=== PATIENT | female | born 1970 | race Caucasian/White ===

== ENCOUNTER → 2016-11-01 | Outpatient (CLI) | payer OTHER ==
[~2016-11-01] MED LIST: ALPR-411 PO; ASCA500 PO; CALC1TAB10 PO; CHOL100010 PO; CHOL1TAB42 PO; CRS/10 PO; CRS10 PO; FRS/40 PO; GLC/500 PO; IRBE1TAB46 PO; LEVO88TA PO; LIRA18IN SC; LVMI SC; METF-384 PO; MISCCAP80 PO; PANT40TA PO; POTA10CA28 PO; POTA1TAB97 PO; TRAZ50TA35 PO; VTMB12 PO
--- NOTE | 2016-11-01 16:11 | MAMMOGRAPHY REPORT ---
BILATERAL DIGITAL SCREENING MAMMOGRAM TOMOSYNTHESIS WITH CAD: 11/01/2016 CLINICAL HISTORY: Routine screening. Patient has no complaints. TECHNIQUE: Breast tomosynthesis in addition to standard 2D mammography was performed. Current study was also evaluated with a Computer Aided Detection (CAD) system. COMPARISON: Comparison is made to exams dated: 10/19/2015 mammogram, 11/27/2013 mammogram, 11/12/2012 mammogram, 10/11/2011 mammogram, 08/03/2010 mammogram - [facility], and 01/17/2007. BREAST COMPOSITION: There are scattered areas of fibroglandular density in both breasts. FINDINGS: No suspicious masses, calcifications, or areas of architectural distortion are noted in e ither breast. There has been no significant interval change compared to prior exams. There is a sta ble benign intramammary lymph node in the right upper outer quadrant. IMPRESSION: ACR BI-RADS CATEGORY 2: BENIGN There is no mammographic evidence of malignancy. A 1 year screening mammogram is recommended. The p atient will receive written notification of the results. Approximately 10% of breast cancers are not detected with mammography. A negative mammographic repor t should not delay biopsy if a clinically suggestive mass is present. Almita Mcginnis M.D. /:11/01/2016 14:50:46 Career Consultant: Norma Albarran, [facility] letter sent: Normal 1/2 BI-RADS Code: ACR BI-RADS Category 2: Benign
== END | disposition home or self-care (01) ==
LOC: C.MAMM 08:32
PROVIDERS: ATTEND Obstetrics & Gynecology
DX: Z12.31 Encounter for screening mammogram for malignant neoplasm of breast (principal)

== ENCOUNTER → 2017-05-21 | Outpatient (CLI) | payer OTHER ==
[2017-05-21 09:55] LABS: CHOLESTEROL/HDL RATIO 2.8
== END | disposition home or self-care (01) ==
LOC: C.LAB 06:47
PROVIDERS: ATTEND Physician Assistant
DX: Z00.00 Encounter for general adult medical examination without abnormal findings (principal)

== ENCOUNTER → 2017-07-02 | Outpatient (CLI) | payer OTHER ==
[2017-07-02 09:37] LABS: HEMATOCRIT 41.5 % (37-47); MEAN CELL VOLUME 88.7 fL (80-100); MEAN CORPUSCULAR HEMOGLOBIN 29.7 pg (25-34); MEAN CORPUSCULAR HGB CONC 33.5 g/dl (32-36); MEAN PLATELET VOLUME 9.8 fL (7.4-10.4); PLATELET COUNT 282 K/uL (130-400); RED BLOOD COUNT 4.68 M/uL (4.2-5.4); WHITE BLOOD COUNT 7.19 K/uL (4.8-10.8)
[2017-07-02 09:57] LABS: ALB/GLOB RATIO 1.1 (0.9-2); ALKALINE PHOSPHATASE 90 U/L (45-117); ALT/SGPT 47 U/L (12-78); AST/SGOT 18 U/L (15-37); BLOOD UREA NITROGEN 11 mg/dl (7-18); BUN/CREATININE RATIO 14.7 (10-20); CARBON DIOXIDE 28 mmol/L (21-32); CHLORIDE 106 mmol/L (98-107); CREATININE 0.76 mg/dl (0.60-1.20); GLUCOSE 151 mg/dl (70-99); HDL CHOLESTEROL 44 mg/dl; POTASSIUM 3.9 mmol/L (3.5-5.1); SODIUM 140 mmol/L (136-145); TRIGLYCERIDES 123 mg/dl (0-150); VERY LOW DENSITY LIPOPROT CALC 25 mg/dl
[2017-07-02 10:03] LABS: CHOLESTEROL 122 mg/dl (0-200); CHOLESTEROL/HDL RATIO 2.8; ESTIMATED AVERAGE GLUCOSE 160 mg/dl; HA1C FLAG Normal (Normal); LDL CHOLESTEROL CALCULATED 53 mg/dl
== END | disposition home or self-care (01) ==
LOC: C.LAB 06:49
PROVIDERS: ATTEND Physician Assistant
DX: Z00.00 Encounter for general adult medical examination without abnormal findings (principal); E11.9 Type 2 diabetes mellitus without complications; E03.9 Hypothyroidism, unspecified; E78.5 Hyperlipidemia, unspecified; G47.00 Insomnia, unspecified; F41.9 Anxiety disorder, unspecified

== ENCOUNTER → 2017-07-24 | Outpatient (CLI) | payer OTHER ==
[~2017-07-24] MED LIST changes: -CHOL100010 PO; -CRS10 PO; -METF-384 PO; -POTA10CA28 PO; -TRAZ50TA35 PO
--- NOTE | 2017-07-24 13:14 | DIAGNOSTIC IMAGING REPORT ---
NUCLEAR GASTRIC EMPTYING STUDY CLINICAL HISTORY: Early satiety. Nausea. Diabetes. COMPARISON STUDY: Abdominal CT dated 07/22/2012. TECHNIQUE: Following the oral administration of 1.1 mCi of technetium 99m sulfur colloid in egg sandwich and 8 ounces of water, static abdominal images are obtained anteriorly and posteriorly at 0 minutes, 1 hour, 2 hour, and 4 hour time intervals. Gastric emptying was calculated utilizing the geometric mean method. FINDINGS: There is approximately 71% activity remaining at the 1 hour time interval, 58% remaining at the 2 hour time interval (normal is less than 60%), and 2% activity remaining at the 4 hour time interval (normal is less than 10%). IMPRESSION: Findings are consistent with normal gastric emptying for solids. Electronically signed by: Wali Ariza M.D. 07/24/2017 1:13 PM Dictated Date/Time: 07/24/2017 1:12 PM
== END ==
LOC: C.NUCL 07:34
PROVIDERS: ATTEND Registered Nurse
DX: K21.9 Gastro-esophageal reflux disease without esophagitis (principal); E11.9 Type 2 diabetes mellitus without complications; R68.81 Early satiety; R11.0 Nausea

== ENCOUNTER → 2017-07-26 | Outpatient (CLI) | payer OTHER ==
[2017-07-26 18:31] LABS: BLOOD UREA NITROGEN 11 mg/dl (7-18); BUN/CREATININE RATIO 14.2 (10-20); CALCIUM 10.2 mg/dl (8.5-10.1); CARBON DIOXIDE 28 mmol/L (21-32); CHLORIDE 105 mmol/L (98-107); CREATININE 0.77 mg/dl (0.60-1.20); GLUCOSE 90 mg/dl (70-99); POTASSIUM 3.6 mmol/L (3.5-5.1); SODIUM 141 mmol/L (136-145)
== END | disposition home or self-care (01) ==
LOC: C.LAB 16:18
PROVIDERS: ATTEND Internal Medicine
DX: I10 Essential (primary) hypertension (principal)

== ENCOUNTER → 2017-07-30 | Outpatient (CLI) | payer OTHER ==
[~2017-07-30] VITALS: Ht 157.5 cm; Wt 82.2 kg
[2017-07-30 15:41] VITALS: BP 129/89; PULSE 106; Ht 157.5 cm; Wt 82.2 kg
== END | disposition home or self-care (01) ==
LOC: C.NEUR 14:58
PROVIDERS: ATTEND Internal Medicine Pulmonary Disease
DX: G47.33 Obstructive sleep apnea (adult) (pediatric) (principal); G47.00 Insomnia, unspecified; R53.83 Other fatigue

== ENCOUNTER → 2017-08-02 | Day surgery (SDC) | payer OTHER ==
[2017-07-22 15:30] VITALS: BMI 33.0
[~2017-08-02] VITALS: Ht 157.5 cm; Wt 81.8 kg
[~2017-08-02] MED LIST changes: +FENTANYL CITRATE INJ 50 MCG/1 ML 2 ML VIAL ONE; +LIDOCAINE HCL 2% 2 ML VIAL (20MG/ML) ONE; +PROPOFOL IV EMULSION 10 MG/ML 20 ML VIAL IV ONE
[2017-08-02 09:54] VITALS: Ht 157.5 cm; Wt 81.8 kg
--- NOTE | 2017-08-02 09:54 | Endo History and Physical ---
History & Physical Date of Service: Aug 02, 2017. Chief Complaint: GERD, Early Satiety Referring Physician: Dr. Patel History of Present Illness 47 yo CF who presents for EGD secondary to GERD and Early satiety. Past Medical History Diabetes, Reflux, High Cholesterol, Hypertension, Thyroid Disease Past Surgical History Hx Cardiac Surgery: No Hx Internal Defibrillator: No Hx Pacemaker: No Hx Abdominal Surgery: Yes (SIGMOID COLECTOMY, MICHELE) Hx of Implantable Prosthesis: No Hx Post-Op Nausea and Vomiting: No Hx Cancer Surgery: No Hx Thoracic Surgery: No Hx Orthopedic: No Hx Urinary Tract Surgery: No Family History None Social History Smoking Status: Never Smoker Hx Substance Use: No Hx Alcohol Use: No Allergies Coded Allergies: Labetalol (Verified Allergy, Intermediate, HIVES, 07/22/17) Losartan (Verified Allergy, Intermediate, HIVES, 07/22/17) Penicillins (Verified Allergy, Intermediate, HIVES, 07/22/17) Pioglitazone (Verified Allergy, Intermediate, SWELLING HANDS AND FEET, 07/22/17) Exenatide (Verified Allergy, Unknown, HIVES, 07/22/17) Fentanyl (Verified Adverse Reaction, Unknown, NAUSEA AND VOMITING, 07/22/17 ) Current Medications Reported Home Medications Medications Dose Route/Sig Max Daily Dose Days Date Category Xanax (Alprazolam) 0.5 Mg Tab 0.5 Mg PO HS PRN 07/22/17 Reported Probiotic (Probiotic Product) 1 Cap Cap 1 Cap PO QAM 07/22/17 Reported Calcium 1000 + D (Calcium Carbonate-Cholecalcife) 1 Tab Tab 1 Tab PO LUNCH 07/22/17 Reported Vitamin C (Ascorbic Acid) 500 Mg Tab 1 Tab PO LUNCH 07/22/17 Reported Vitamin B-12 (Cyanocobalamin) 500 Mcg Tab 1 Tab PO LUNCH 07/22/17 Reported Vitamin D (Cholecalciferol) 5,000 Unit Tab 1 Tab PO QAM 07/22/17 Reported Crestor (Rosuvastatin Calcium) 10 Mg Tab 10 Mg PO QPM 07/22/17 Reported Glucophage (Metformin Hcl) 500 Mg Tab 2 Tabs PO BID 07/22/17 Reported K-Tab (Potassium Chloride) 20 Meq Tab 1 Tab PO QAM 07/22/17 Reported Synthroid (Levothyroxine Sodium) 88 Mcg Tab 88 Mcg PO QAM 11/27/15 Reported Irbesartan 75 Mg Tab 75 Mg PO QPM 11/27/15 Reported Protonix (Pantoprazole) 40 Mg Tab 40 Mg PO QAM 11/27/15 Reported Levemir (Insulin Detemir) 100 Units/Ml Inj 24 Units SC BID 11/27/15 Reported Victoza (Liraglutide) 18 Mg/3 Ml Inj 1.2 Mg SC QPM 04/29/14 Reported Lasix (Furosemide) 40 Mg Tab 40 Mg PO QAM 05/20/11 Reported Vital Signs Weight (Kilograms): 81.82 Height (Feet): 5 Height (Inches): 2 Physical Exam General Appearance: WD/WN, no apparent distress Respiratory/Chest: Auscultation: breath sounds normal Cardiovascular: Heart Auscultation: RRR Abdomen: Bowel Sounds: normal Inspection & Palpation: soft, non-distended, no tenderness, guarding & rebound Assessment and Plan Assessment: 47 yo CF who presents for EGD secondary to GERD and Early satiety. Plan: Proceed with EGD.
[2017-08-02 10:01] VITALS: TEMP 37.1
--- NOTE | 2017-08-02 10:56 | Discharge Instructions ---
Endoscopy Patient Instructions Date / Procedure(s) Performed Aug 02, 2017. EGD Allergy Information Coded Allergies: Labetalol (Verified Allergy, Intermediate, HIVES, 07/22/17) Losartan (Verified Allergy, Intermediate, HIVES, 07/22/17) Penicillins (Verified Allergy, Intermediate, HIVES, 07/22/17) Pioglitazone (Verified Allergy, Intermediate, SWELLING HANDS AND FEET, 07/22/17) Exenatide (Verified Allergy, Unknown, HIVES, 07/22/17) Fentanyl (Verified Adverse Reaction, Unknown, NAUSEA AND VOMITING, 07/22/17 ) Discharge Date / Findings Aug 02, 2017. Gastric antrum biopsies Medication Instructions Stopped Medication(s): METFORMIN OK to resume all medications today as prescribed Reported Home Medications Medications Dose Route/Sig Max Daily Dose Days Date Category Xanax (Alprazolam) 0.5 Mg Tab 0.5 Mg PO HS PRN 07/22/17 Reported Probiotic (Probiotic Product) 1 Cap Cap 1 Cap PO QAM 07/22/17 Reported Calcium 1000 + D (Calcium Carbonate-Cholecalcife) 1 Tab Tab 1 Tab PO LUNCH 07/22/17 Reported Vitamin C (Ascorbic Acid) 500 Mg Tab 1 Tab PO LUNCH 07/22/17 Reported Vitamin B-12 (Cyanocobalamin) 500 Mcg Tab 1 Tab PO LUNCH 07/22/17 Reported Vitamin D (Cholecalciferol) 5,000 Unit Tab 1 Tab PO QAM 07/22/17 Reported Crestor (Rosuvastatin Calcium) 10 Mg Tab 10 Mg PO QPM 07/22/17 Reported Glucophage (Metformin Hcl) 500 Mg Tab 2 Tabs PO BID 07/22/17 Reported K-Tab (Potassium Chloride) 20 Meq Tab 1 Tab PO QAM 07/22/17 Reported Synthroid (Levothyroxine Sodium) 88 Mcg Tab 88 Mcg PO QAM 11/27/15 Reported Irbesartan 75 Mg Tab 75 Mg PO QPM 11/27/15 Reported Protonix (Pantoprazole) 40 Mg Tab 40 Mg PO QAM 11/27/15 Reported Levemir (Insulin Detemir) 100 Units/Ml Inj 24 Units SC BID 11/27/15 Reported Victoza (Liraglutide) 18 Mg/3 Ml Inj 1.2 Mg SC QPM 04/29/14 Reported Lasix (Furosemide) 40 Mg Tab 40 Mg PO QAM 05/20/11 Reported Provider Instructions Activity Restrictions - No exercising or heavy lifting for 24 hours. - Do not drink alcohol the day of the procedure. - Do not drive a car or operate machinery until the day after the procedure. - Do not make any important decisions or sign important papers in 24 hours after the procedure. Following Day: - Return to full activity which may include returning to work/school. Diet Start your diet with liquids and light foods (jello, soup, juice, toast). Then eat your usual diet if not nauseated. Treatment For Common After Affects For mild abdominal pain, bloating, or excessive gas: - Rest - Eat lightly - Lie on right side Follow-Up Information Follow-up with DR. RAMSEY ZAPATA as scheduled Anesthesia Information What You Should Know You have had a procedure that required some medicine to reduce anxiety and discomfort. This treatment is called moderate sedation. After receiving the treatment, you may be sleepy, but you will be able to breathe on your own. The effects of the treatment may last for several hours. Follow these instructions along with Activity/Diet recommendations noted above: * Do NOT do anything where dizziness or clumsiness would be dangerous. * Rest quietly at home today, then you can be up and about tomorrow. * Have a responsible person stay with you the rest of today. * You may have had an I.V. today. If so, you may take the dressing off later today. Recommendations Call your doctor if: * Trouble breathing * Continuous vomiting for more than 24 hours * Temperature above 101 degrees * Severe abdominal pain or bloating * Pain not relieved by pain medicine ordered * There is increased drainage or redness from any incision * A large amount of rectal bleeding greater than 2-3 tablespoons. (If you had a polyp/s removed or have hemorrhoids, a small amount of blood - from the rectum is to be expected.) * You have any unanswered questions or concerns. IN THE EVENT OF A SERIOUS EMERGENCY, GO TO THE NEAREST EMERGENCY ROOM Your discharge instructions were prepared by provider Hugo Coronel. Patient Instructions Signature Page Susanne Garrett Patient (or Guardian) Signature/Date: I have read and understand the instructions given to me by my caregivers. Caregiver/RN/Doctor Signature/Date: The above-named patient and/or guardian has received patient instructions on this date. + Original Patient Signature Page (only) stays with chart. Please make copy for patient.
--- NOTE | 2017-08-02 11:02 | GI REPORT ---
Procedure Date: 08/02/2017 10:30 AM Procedure: Upper GI endoscopy Indications: Gastro-esophageal reflux disease, Early satiety Medicines: Monitored Anesthesia Care Complications: No immediate complications. Estimated Blood Loss: Estimated blood loss: none. Procedure: Pre-Anesthesia Assessment: - Prior to the procedure, a History and Physical was performed, and patient medications and allergies were reviewed. The patient's tolerance of previous anesthesia was also reviewed. The risks and benefits of the procedure and the sedation options and risks were discussed with the patient. All questions were answered, and informed consent was obtained. Prior Anticoagulants: The patient has taken no previous anticoagulant or antiplatelet agents. ASA Grade Assessment: III - A patient with severe systemic disease. After reviewing the risks and benefits, the patient was deemed in satisfactory condition to undergo the procedure. After obtaining informed consent, the endoscope was passed under direct vision. Throughout the procedure, the patient's blood pressure, pulse, and oxygen saturations were monitored continuously. The scope was introduced through the mouth, and advanced to the second part of duodenum. The upper GI endoscopy was accomplished without difficulty. The patient tolerated the procedure well. Findings: The esophagus was normal. The entire examined stomach was normal. Biopsies were taken with a cold forceps for Helicobacter pylori testing. The examined duodenum was normal. Impression: - Normal esophagus. - Normal stomach. Biopsied. - Normal examined duodenum. Recommendation: - Resume previous diet. - Continue present medications. - Await pathology results. - Return to primary care physician as previously scheduled. Hugo Coronel DO 08/02/2017 11:02:04 AM This report has been signed electronically. Note Initiated On: 08/02/2017 10:30 AM I attest to the content of the Intraoperative Record and orders documented therein, exceptions below
[2017-08-02 11:21] VITALS: BP 123/85; PULSE 77; O2SAT 95
--- NOTE | 2017-08-02 12:04 | Anesthesiology Progress Note ---
Anesthesia Post Op Note Date & Time Aug 02, 2017 at 12:04 Vital Signs Pain Intensity: 0 Vital Signs Past 12 Hours Date Time Temp Pulse Resp B/P (MAP) Pulse Ox O2 Delivery O2 Flow Rate FiO2 08/02/17 11:21 77 20 123/85 (98) 95 Room Air 08/02/17 11:06 81 20 135/89 (104) 96 Room Air 08/02/17 10:51 78 18 117/77 (90) 99 Room Air 08/02/17 10:01 37.1 85 16 147/80 (102) 95 Room Air Notes Mental Status: alert / awake / arousable, participated in evaluation Pt Amnestic to Procedure: Yes Nausea / Vomiting: adequately controlled Pain: adequately controlled Airway Patency, RR, SpO2: stable & adequate BP & HR: stable & adequate Hydration State: stable & adequate Anesthetic Complications: no major complications apparent
== END | disposition home or self-care (01) ==
LOC: C.GI 09:19
PROVIDERS: ATTEND Internal Medicine
DX: K21.9 Gastro-esophageal reflux disease without esophagitis (principal); R68.81 Early satiety; I10 Essential (primary) hypertension; E78.00 Pure hypercholesterolemia, unspecified; E11.9 Type 2 diabetes mellitus without complications; E07.9 Disorder of thyroid, unspecified; Z79.84 Long term (current) use of oral hypoglycemic drugs; Z79.899 Other long term (current) drug therapy

== ENCOUNTER → 2017-08-26 | Outpatient (CLI) | payer OTHER ==
[~2017-08-26] MED LIST changes: -FENTANYL CITRATE INJ 50 MCG/1 ML 2 ML VIAL ONE; -LIDOCAINE HCL 2% 2 ML VIAL (20MG/ML) ONE; -PROPOFOL IV EMULSION 10 MG/ML 20 ML VIAL IV ONE
== END | disposition home or self-care (01) ==
LOC: C.PAPS 13:45
PROVIDERS: ATTEND Obstetrics & Gynecology
DX: Z12.4 Encounter for screening for malignant neoplasm of cervix (principal)

== ENCOUNTER → 2017-09-02 | Outpatient (CLI) | payer OTHER | END | disposition home or self-care (01) | LOC: C.LAB 17:39 | PROVIDERS: ATTEND Internal Medicine | DX: Z86.39 Personal history of other endocrine, nutritional and metabolic disease (principal) ==

== ENCOUNTER → 2017-10-08 | Outpatient (CLI) | payer OTHER ==
[~2017-10-08] VITALS: Ht 157.5 cm; Wt 84.3 kg
[2017-10-08 16:24] VITALS: BP 122/79; PULSE 103; Ht 157.5 cm; Wt 84.3 kg
== END | disposition home or self-care (01) ==
LOC: C.NEUR 15:15
PROVIDERS: ATTEND Physician Assistant Medical
DX: G47.33 Obstructive sleep apnea (adult) (pediatric) (principal); E66.9 Obesity, unspecified; G47.61 Periodic limb movement disorder

== ENCOUNTER → 2017-11-05 | Outpatient (CLI) | payer OTHER ==
--- NOTE | 2017-11-06 15:09 | MAMMOGRAPHY REPORT ---
BILATERAL DIGITAL SCREENING MAMMOGRAM TOMOSYNTHESIS WITH CAD: 11/05/2017 CLINICAL HISTORY: Routine screening. Patient has no complaints. TECHNIQUE: Breast tomosynthesis in addition to standard 2D mammography was performed. Current study was also evaluated with a Computer Aided Detection (CAD) system. COMPARISON: Comparison is made to exams dated: 11/01/2016 mammogram, 10/19/2015 mammogram, 11/12/2012 mammogram, 11/27/2013 mammogram, 10/11/2011 mammogram, and 02/02/2011 mammogram - [facility]. BREAST COMPOSITION: There are scattered areas of fibroglandular density in both breasts. FINDINGS: The parenchymal pattern is unchanged. No developing mass, architectural distortion or clus ter of suspicious microcalcifications is seen in either breast. IMPRESSION: ACR BI-RADS CATEGORY 2: BENIGN There is no mammographic evidence of malignancy. A 1 year screening mammogram is recommended. The pa tient will receive written notification of the results. Approximately 10% of breast cancers are not detected with mammography. A negative mammographic report should not delay biopsy if a clinically suggestive mass is present. Mago Melvin M.D. ay/:11/05/2017 14:52:36 Campus Recruiting Coordinator: Norma MORRIS([place])(M), [facility] letter sent: Normal 1/2 BI-RADS Code: ACR BI-RADS Category 2: Benign
== END | disposition home or self-care (01) ==
LOC: C.MAMM 14:10
PROVIDERS: ATTEND Obstetrics & Gynecology
DX: Z12.31 Encounter for screening mammogram for malignant neoplasm of breast (principal)

== ENCOUNTER → 2017-11-08 | Outpatient (CLI) | payer OTHER ==
[2017-11-08 14:04] LABS: HEMOGLOBIN A1C 6.6 % (4.5-5.6)
== END | disposition home or self-care (01) ==
LOC: C.LAB 12:25
PROVIDERS: ATTEND Internal Medicine Endocrinology, Diabetes & Metabolism
DX: E55.9 Vitamin D deficiency, unspecified (principal); E11.65 Type 2 diabetes mellitus with hyperglycemia

== ENCOUNTER → 2017-11-12 | Day surgery (SDC) | payer OTHER ==
[~2017-11-12] VITALS: Ht 157.5 cm; Wt 82.0 kg
[2017-11-12 07:37] VITALS: BP 109/78; PULSE 89; TEMP 36.7; O2SAT 93; Ht 157.5 cm; Wt 82.0 kg
[2017-11-12 11:14] VITALS: BP 111/77; PULSE 100; TEMP 36.8; O2SAT 95
--- NOTE | 2017-11-14 11:09 | Procedure Note ---
Breath Hydrogen Test Interpretation Assessment: No evidence of Small intestinal bacterial overgrowth on Lactulose breath testing. Plan: Followup with ordering provider for further evaluation and recommendations.
== END | disposition home or self-care (01) ==
LOC: C.MTU 07:26
PROVIDERS: ATTEND Internal Medicine
DX: R14.0 Abdominal distension (gaseous) (principal)

== ENCOUNTER 2017-12-05 18:08 | Emergency (ER) | payer OTHER ==
[~2017-12-05] VITALS: Ht 157.5 cm; Wt 83.3 kg
[2017-12-05 18:44] VITALS: TEMP 37; Ht 157.5 cm; Wt 83.3 kg
[2017-12-05] MEDS ORDERED: ONDANSETRON INJ 2 MG/ML 2 ML VIAL IV STA (21:17)
[2017-12-05] MEDS ORDERED: CIPROFLOXACIN 500 MG TAB PO STA (21:17)
[2017-12-05] MEDS ORDERED: METRONIDAZOLE 250 MG TAB PO STA (21:17)
[2017-12-05] MEDS ORDERED: SODIUM CHLORIDE 0.9% 1000ML 1,000 ML IV STA (21:17)
[2017-12-05] MEDS ORDERED: KETOROLAC TROMETHAMINE 30 MG/ML VIAL IV STA (21:17)
[2017-12-05 21:27] LABS: BASO % 0.6 %; BASO ABS # 0.05 K/uL (0-0.2); EOS % 1.9 %; EOS ABS # 0.17 K/uL (0-0.5); HEMATOCRIT 44.1 % (37-47); HEMOGLOBIN 15.2 g/dL (12.0-16.0); IG# 0.01 K/uL (0.00-0.02); LYMPH % 37.5 %; LYMPH ABS # 3.28 K/uL (1.2-3.4); MEAN CELL VOLUME 86.6 fL (80-100); MEAN CORPUSCULAR HEMOGLOBIN 29.9 pg (25-34); MEAN CORPUSCULAR HGB CONC 34.5 g/dl (32-36); MONO % 7.4 %; MONO ABS # 0.65 K/uL (0.11-0.59); NEUT % 52.5 %; NEUT ABS # 4.59 K/uL (1.4-6.5); PLATELET COUNT 316 K/uL (130-400); RED CELL DISTRIBUTION WIDTH CV 13.3 % (11.5-14.5); RED CELL DISTRIBUTION WIDTH SD 42.4 fL (36.4-46.3); WHITE BLOOD COUNT 8.75 K/uL (4.8-10.8)
[2017-12-05 21:44] LABS: CALCIUM 9.6 mg/dl (8.5-10.1); CREATININE 0.83 mg/dl (0.60-1.20); POTASSIUM 3.3 mmol/L (3.5-5.1)
[2017-12-05 21:47] LABS: TOTAL PROTEIN 7.9 gm/dl (6.4-8.2)
--- NOTE | 2017-12-05 22:06 | DIAGNOSTIC IMAGING REPORT ---
ADDENDUM Impression #5. A 6 mm nodule within the right middle lobe. Please refer to the chart below for recommended follow-up. These findings were discussed with Dr. White at 10:58 PM on 12/05/2017. Please refer to below summary of Fleischner criteria recommendations for follow-up of incidental CT nodules (Kelsea Ruvalcaba, Guidelines for management of small pulmonary nodules detected on CT scans: A statement from the Fleischner Society, Radiology 237: [phone].) SOLID NODULES Solitary nodule size: <6 mm * Low risk patients: no follow-up needed * high risk patients: optional CT at 12 months Solitary nodule size: 6-8 mm * Low risk patients: follow-up at 6-12 months, then consider further follow-up at 18-24 months * high risk patients: initial follow-up CT at 6-12 months and then at 18-24 months if no change Solitary nodule size: >8 mm * either low or high risk patients - consider follow-up CT at 3 months, and/or CT-PET, and/or biopsy Multiple nodules size: <6 mm * Low risk patients: no routine follow-up * high risk patients: optional CT at 12 months Multiple nodules size: 6-8 mm * Low risk patients: follow-up at 3-6 months, then consider further follow-up at 18-24 months * high risk patients: follow-up at 3-6 months, then at 18-24 months if no change Multiple nodules size: >8 mm * Low risk patients: follow-up at 3-6 months, then consider further follow-up at 18-24 months * high risk patients: follow-up at 3-6 months, then at 18-24 months if no change Note: newly detected indeterminate nodule in persons 35 years of age or older. * Low risk patients: minimal or absent history of smoking and/or other known risk factors * high risk patients: history of smoking or of other known risk factors (e.g. first degree relative with lung cancer, or exposure to asbestos, radon, uranium) * if a nodule up to 8 mm is partly solid or is ground glass further follow-up is required after 24 months to exclude possible slow growing adenocarcinoma (NESTOR) SUBSOLID NODULES Solitary pure ground-glass nodule * nodule size <6 mm - no CT follow-up required * nodule size >=6 mm - follow-up CT at 6-12 months, then every 2 years until 5 years Solitary part-solid nodule * nodule size <6 mm - no CT follow-up required * nodule size >=6 mm - follow-up CT at 3-6 months. If unchanged, and solid component remains <6 mm, then annual follow-up for 5 years Multiple subsolid nodules * nodule size <6 mm - follow-up CT at 3-6 months, consider further follow-up at 2 and 4 years if stable * nodule size >=6 mm - follow-up CT at 3-6 months, subsequent management based on the most suspicious nodule(s) Electronically signed by: Rafat Chavez M.D. 12/05/2017 10:58 PM Dictated Date/Time: 12/05/2017 10:56 PM ORIGINAL REPORT ABDOMEN AND PELVIS CT WITHOUT CONTRAST CT DOSE: 620.79 mGy.cm HISTORY: Left lower quadrant pain. TECHNIQUE: Multiaxial CT images of the abdomen and pelvis were performed without contrast. A dose lowering technique was utilized adhering to the principles of ALARA. COMPARISON STUDY: Abdomen and pelvis CT 02/05/2012. FINDINGS: There is a 6 mm nodule within the right middle lobe on image 8. Bibasilar linear densities consistent with subsegmental atelectasis. No pneumoperitoneum. No pneumatosis. No fractures within the visualized osseous structures. Tiny fat-containing umbilical hernia. The liver, spleen, adrenal glands, pancreas, and kidneys are unremarkable. No hydronephrosis. Cholecystectomy. No retroperitoneal lymphadenopathy. The bladder is not well-distended. The uterus and ovaries are unremarkable. There is no complaint diverticula at the distal sigmoid colon with surrounding pericolonic inflammatory change. This is consistent with acute diverticulitis. No perforation or abscess at this time. No evidence for bowel obstruction. Normal appendix. IMPRESSION: 1. Acute sigmoid diverticulitis. No perforation or abscess. 2. No evidence for bowel obstruction. 3. Normal appendix. 4. Cholecystectomy. Electronically signed by: Rafat Chavez M.D. 12/05/2017 10:04 PM Dictated Date/Time: 12/05/2017 10:00 PM
[2017-12-05] MEDS ORDERED: ESZO1TAB18 PO (22:32)
[2017-12-05] MEDS ORDERED: METF500T5 PO (22:32)
[2017-12-05] MEDS ORDERED: ASPI81TA28 PO (22:32)
[2017-12-05] MEDS ORDERED: METR-163 PO (23:16)
[2017-12-05] MEDS ORDERED: CIPR-255 PO (23:16)
[2017-12-05] MEDS ORDERED: OXYC-57 PO (23:16)
--- NOTE | 2017-12-05 23:18 | EMERGENCY ROOM VISIT NOTE ---
History Report prepared by Cabrera: Guerrero Zavala Under the Supervision of: Dr. Lauri White D.O. First contact with patient: 21:12 Chief Complaint: ABDOMINAL PAIN Stated Complaint: ABDOMINAL PAIN,FEVER Nursing Triage Summary: Patient ambulatory to triage, states "I have had abdominal pain since yesterday afternoon. I saw my PCP today and he told me to come in. I have a history of diverticulitis." Patient denies any nausea/vomiting/diarrhea. No blood in stool. Decreased appetite today. History of Present Illness The patient is a 47 year old female who presents to the Emergency Room with complaints of constant abdominal pain beginning yesterday. The patient states that she has a history of diverticulitis, and believes that her current symptoms are a flare up. She also complains of a fever of 100.2, nausea, and vomiting. She denies having diarrhea, but notes that she has had a few loose stools. Source of History: patient Onset: yesterday Position: abdomen Timing: constant Associated Symptoms: + fevers (100.2), + nausea, + vomiting, No diarrhea Note: She also complains of loose stools. Review of Systems See HPI for pertinent positives & negatives. A total of 10 systems reviewed and were otherwise negative. Past Medical & Surgical Medical Problems: (1) Benign hypertension (2) Biliary colic (3) CHEST PAIN ON BREATHING (4) CHEST PAIN, UNSPECIFIED (5) Diabetes mellitus (6) Diverticulitis (7) sigmoid colectomy Family History Diabetes mellitus (Paternal side) Heart disease Hypertension Social History Smoking Status: Never Smoker Alcohol Use: occasionally Drug Use: none Marital Status: single Housing Status: lives alone Occupation Status: employed Current/Historical Medications Scheduled Ascorbic Acid (Vitamin C), 1 TAB PO LUNCH Aspirin (Aspirin Ec), 81 MG PO DAILY Cholecalciferol (Vitamin D), 1 TAB PO QAM Ciprofloxacin Hcl (Cipro), 500 MG PO BID Cyanocobalamin (Vitamin B-12), 1 TAB PO LUNCH Eszopiclone (Lunesta), 2 MG PO HS Furosemide (Lasix), 40 MG PO QAM Insulin Detemir (Levemir), 40 UNITS SC BID Irbesartan (Irbesartan), 75 MG PO QPM Levothyroxine Sodium (Synthroid), 88 MCG PO QAM Liraglutide (Victoza), 1.2 MG SC QPM Metformin Hcl Er (Glucophage Er), 1,000 MG PO BID Metronidazole (Flagyl), 500 MG PO TID Pantoprazole (Protonix), 40 MG PO QAM Potassium Chloride (K-Tab), 1 TAB PO QAM Probiotic Product (Probiotic), 1 CAP PO QAM Rosuvastatin Calcium (Crestor), 10 MG PO QPM Scheduled PRN Oxycodone/Acetaminophen 5MG/325MG (Percocet 5MG/325MG), 1 TAB PO Q6H PRN for Pain Allergies Coded Allergies: Labetalol (Verified Allergy, Intermediate, HIVES, 12/05/17) Losartan (Verified Allergy, Intermediate, HIVES, 12/05/17) Penicillins (Verified Allergy, Intermediate, HIVES, 12/05/17) Pioglitazone (Verified Allergy, Intermediate, SWELLING HANDS AND FEET, ) Exenatide (Verified Allergy, Unknown, HIVES, 12/05/17) Fentanyl (Verified Adverse Reaction, Unknown, NAUSEA AND VOMITING, 12/05/17 ) Physical Exam Vital Signs Date Time Temp Pulse Resp B/P (MAP) Pulse Ox O2 Delivery O2 Flow Rate FiO2 12/05/17 22:58 85 12/05/17 22:36 89 20 94 12/05/17 22:31 121/89 12/05/17 21:31 134/106 12/05/17 21:28 96 15 93 12/05/17 21:13 87 16 93 12/05/17 21:01 133/90 12/05/17 20:58 88 14 94 12/05/17 20:53 90 15 95 Room Air 12/05/17 20:52 142/88 12/05/17 18:44 37.0 102 20 123/79 94 Room Air Physical Exam CONSTITUTIONAL/VITAL SIGNS: Reviewed / noted above. GENERAL: Non-toxic in appearance. INTEGUMENTARY: Warm, dry, and [place]. HEAD: Normocephalic. EYES: without scleral icterus or trauma. ENT/OROPHARYNX: clear and moist. LYMPHADENOPATHY/NECK: Is supple without lymphadenopathy or meningismus. RESPIRATORY: Lungs clear and equal. CARDIOVASCULAR: Regular rate and rhythm. GI/ABDOMEN: Soft. No organomegaly or pulsatile mass. No rebound or guarding. Normal bowel sounds. LLQ tenderness. EXTREMITIES: Warm and well perfused. BACK: No CVA tenderness. NEUROLOGICAL: Intact without focal deficits. PSYCHIATRIC: normal affect. MUSCULOSKELETAL: Normally developed with good muscle tone. Medical Decision & Procedures ER Provider Diagnostic Interpretation: Radiology results as stated below per my review and radiologist interpretation: ABDOMEN AND PELVIS CT WITHOUT CONTRAST FINDINGS: There is a 6 mm nodule within the right middle lobe on image 8. Bibasilar linear densities consistent with subsegmental atelectasis. No pneumoperitoneum. No pneumatosis. No fractures within the visualized osseous structures. Tiny fat-containing umbilical hernia. The liver, spleen, adrenal glands, pancreas, and kidneys are unremarkable. No hydronephrosis. Cholecystectomy. No retroperitoneal lymphadenopathy. The bladder is not well-distended. The uterus and ovaries are unremarkable. There is no complaint diverticula at the distal sigmoid colon with surrounding pericolonic inflammatory change. This is consistent with acute diverticulitis. No perforation or abscess at this time. No evidence for bowel obstruction. Normal appendix. IMPRESSION: 1. Acute sigmoid diverticulitis. No perforation or abscess. 2. No evidence for bowel obstruction. 3. Normal appendix. 4. Cholecystectomy. Electronically signed by: Rafat Chavez M.D. 12/05/2017 10:04 PM Laboratory Results 12/05/17 21:04 Red Blood Count 5.09, Mean Corpuscular Volume 86.6, Mean Corpuscular Hemoglobin 29.9, Mean Corpuscular Hemoglobin Concent 34.5, Mean Platelet Volume 10.0, Neutrophils (%) (Auto) 52.5, Lymphocytes (%) (Auto) 37.5, Monocytes (%) (Auto) 7.4, Eosinophils (%) (Auto) 1.9, Basophils (%) (Auto) 0.6, Neutrophils # (Auto) 4.59, Lymphocytes # (Auto) 3.28, Monocytes # (Auto) 0.65, Eosinophils # (Auto) 0.17, Basophils # (Auto) 0.05 12/05/17 21:04 Test 12/05/17 20:50 12/05/17 21:04 Urine Color YELLOW Urine Appearance CLOUDY (CLEAR) Urine pH 5.0 (4.5-7.5) Urine Specific [place] 1.024 (1.000-1.030) Urine Protein NEG (NEG) Urine Glucose (UA) NEG (NEG) Urine Ketones TRACE (NEG) Urine Occult Blood NEG (NEG) Urine Nitrite NEG (NEG) Urine Bilirubin NEG (NEG) Urine Urobilinogen NEG (NEG) Urine Leukocyte Esterase SMALL (NEG) Urine WBC (Auto) 10-30 /hpf (0-5) Urine RBC (Auto) 0-4 /hpf (0-4) Urine Hyaline Casts (Auto) 5-10 /lpf (0-5) Urine Epithelial Cells (Auto) 20-30 /lpf (0-5) Urine Bacteria (Auto) 1+ (NEG) Urine Yeast (Auto) (NONE PRSENT) White Blood Count 8.75 K/uL (4.8-10.8) Red Blood Count 5.09 M/uL (4.2-5.4) Hemoglobin 15.2 g/dL (12.0-16.0) Hematocrit 44.1 % (37-47) Mean Corpuscular Volume 86.6 fL (80-100) Mean Corpuscular Hemoglobin 29.9 pg (25-34) Mean Corpuscular Hemoglobin Concent 34.5 g/dl (32-36) Platelet Count 316 K/uL (130-400) Mean Platelet Volume 10.0 fL (7.4-10.4) Neutrophils (%) (Auto) 52.5 % Lymphocytes (%) (Auto) 37.5 % Monocytes (%) (Auto) 7.4 % Eosinophils (%) (Auto) 1.9 % Basophils (%) (Auto) 0.6 % Neutrophils # (Auto) 4.59 K/uL (1.4-6.5) Lymphocytes # (Auto) 3.28 K/uL (1.2-3.4) Monocytes # (Auto) 0.65 K/uL (0.11-0.59) Eosinophils # (Auto) 0.17 K/uL (0-0.5) Basophils # (Auto) 0.05 K/uL (0-0.2) RDW Standard Deviation 42.4 fL (36.4-46.3) RDW Coefficient of Variation 13.3 % (11.5-14.5) Immature Granulocyte % (Auto) 0.1 % Immature Granulocyte # (Auto) 0.01 K/uL (0.00-0.02) Anion Gap 10.0 mmol/L (3-11) Est Creatinine Clear Calc Drug Dose 82.9 ml/min Estimated GFR () 96.6 Estimated GFR (Non- 83.4 BUN/Creatinine Ratio 11.8 (10-20) Calcium Level 9.6 mg/dl (8.5-10.1) Total Bilirubin 0.7 mg/dl (0.2-1) Direct Bilirubin 0.1 mg/dl (0-0.2) Aspartate Amino Transf (AST/SGOT) 14 U/L (15-37) Alanine Aminotransferase (ALT/SGPT) 34 U/L (12-78) Alkaline Phosphatase 91 U/L (45-117) Total Protein 7.9 gm/dl (6.4-8.2) Albumin 4.0 gm/dl (3.4-5.0) Lipase 158 U/L (73-393) Laboratory results as stated above per my review. Medications Administered Medications (Trade) Dose Ordered Sig/Naheed Route Start Time Stop Time Status Last Admin Dose Admin Sodium Chloride 1,000 ml @ 999 mls/hr Q1H1M STAT IV 12/05/17 21:17 12/05/17 22:17 DC 12/05/17 21:33 999 MLS/HR Ondansetron HCl (Zofran Inj) 4 mg NOW STAT IV 12/05/17 21:17 12/05/17 21:20 DC 12/05/17 21:29 4 MG Ketorolac Tromethamine (Toradol Inj) 30 mg NOW STAT IV 12/05/17 21:17 12/05/17 21:20 DC 12/05/17 21:29 30 MG Ciprofloxacin (Cipro Tab) 500 mg NOW STAT PO 12/05/17 21:17 12/05/17 21:20 DC 12/05/17 21:28 500 MG Metronidazole (Flagyl Tab) 500 mg NOW STAT PO 12/05/17 21:17 12/05/17 21:20 DC 12/05/17 21:29 500 MG ED Course 2112: Previous medical records were reviewed. The patient was evaluated in room C11. A complete history and physical examination was performed. 2116: Metronidazole 500mg PO, Cipro Tab 500mg PO, Toradol Inj 30mg IV, Zofran Inj 4mg IV, Sodium Chloride 1000 ml @ 999 mls/hr IV 2319: On reevaluation, the patient is stable. I discussed the results and findings with the patient. She verbalized agreement of the treatment plan. The patient was discharged home. Medical Decision Differential considered: pancreatitis, hepatitis, or acute cholecystitis, AAA, UTI, pyelonephritis, kidney stones, appendicitis, diverticulitis, shingles, bowel obstruction mesenteric ischemia, intussusception,hernia, ovarian torsion, ruptured ovarian cyst,ectopic , . This is a 47-year-old female who presents to the ED with a chief complaint of left lower quadrant abdominal pain. The patient states that her symptoms started over the past 24 hours. She has history of diverticulitis and it feels the same. She had a little diarrhea but no nausea vomiting or fevers. She saw her PCP today and the temperature was 100.2. Her vital signs are normal. She is afebrile. Physical exam reveals tenderness to the left lower quadrant. CBC is normal, complete metabolic panel was normal and the urine appears contaminated. Culture has been sent. A CT scan of the pelvis reveals diverticulitis. There is also noted to be a 6 mm nodule in the lung. The patient was advised of these findings. She is felt to be stable for discharge. She was given a Percocet home pack. The patient will be discharged on Cipro and Flagyl and a Percocet prescription. She has had this in the past and will try a liquid diet for the next several days and advance her diet as symptoms improve. She will return for fevers, increasing pain or vomiting or other concerns. Medication Reconcilliation Current Medication List: was personally reviewed by me Blood Pressure Screening Patient's blood pressure: Normal blood pressure Blood pressure disposition: Did not require urgent referral Impression Primary Impression: Diverticulitis Scribe Attestation The scribe's documentation has been prepared under my direction and personally reviewed by me in its entirety. I confirm that the note above accurately reflects all work, treatment, procedures, and medical decision making performed by me. Departure Information Dispostion Home / Self-Care Prescriptions Metronidazole (Flagyl) 500 Mg Tab 500 MG PO TID for 10 Days, #30 TAB Prov: Lauri White D.O. 12/05/17 Ciprofloxacin Hcl (CIPRO) 500 Mg Tab 500 MG PO BID, #20 TAB Prov: Lauri White D.O. 12/05/17 Oxycodone/Acetaminophen 5MG/325MG (PERCOCET 5MG/325MG) Tab 1 TAB PO Q6H Y for Pain, #20 TAB Prov: Lauri White D.O. 12/05/17 Referrals Lexus Patel M.D. (PCP) Forms Call Back Authorization, HOME CARE DOCUMENTATION FORM, IMPORTANT VISIT INFORMATION Patient Instructions ED Diverticulitis, [facility] Additional Instructions Percocet as prescribed. No driving within 6 hours of use. Do not take additional Tylenol while taking Percocet. Cipro and Flagyl as prescribed. Liquid diet for the next several days and then advance as pain improves.
[2017-12-05 23:26] VITALS: O2SAT 94
[2017-12-05] MEDS ORDERED: PERCOCET HOME PACK PO ONE (23:30)
[2017-12-05 23:31] VITALS: BP 129/87
[2017-12-05 23:41] VITALS: PULSE 85
== END 2017-12-05 23:46 | disposition home or self-care (01) ==
LOC: C.EDB 18:09 → C.EDC 23:46
DX: K57.32 Diverticulitis of large intestine without perforation or abscess without bleeding (principal); I10 Essential (primary) hypertension; E11.9 Type 2 diabetes mellitus without complications; Z83.3 Family history of diabetes mellitus; Z82.49 Family history of ischemic heart disease and other diseases of the circulatory system; Z79.82 Long term (current) use of aspirin; Z79.899 Other long term (current) drug therapy; Z88.0 Allergy status to penicillin; Z88.5 Allergy status to narcotic agent; Z88.8 Allergy status to other drugs, medicaments and biological substances

== ENCOUNTER 2017-12-08 16:27 | Emergency (ER) | payer OTHER ==
[~2017-12-08] VITALS: Ht 157.5 cm; Wt 83.4 kg
[~2017-12-08 16:27] MED LIST changes: -ALPR-411 PO; +ASPI81TA28 PO; -CALC1TAB10 PO; +CIPR-255 PO; +ESZO1TAB18 PO; -GLC/500 PO; +METF500T5 PO; +METR-163 PO; +OXYC-57 PO
[2017-12-08 16:36] VITALS: TEMP 36.8; Ht 157.5 cm; Wt 83.4 kg
[2017-12-08] MEDS ORDERED: SODIUM CHLORIDE 0.9% 1000ML 1,000 ML IV STA (16:51)
[2017-12-08] MEDS ORDERED: ONDANSETRON INJ 2 MG/ML 2 ML VIAL IV STA (16:51)
[2017-12-08] MEDS ORDERED: KETOROLAC TROMETHAMINE 30 MG/ML VIAL IV STA (16:51)
--- NOTE | 2017-12-08 17:00 | EMERGENCY ROOM VISIT NOTE ---
History Report prepared by Cabrera: Emelia Bonilla Under the Supervision of: Dr. Jakob Padilla D.O. First contact with patient: 16:42 Chief Complaint: GI ASSESSMENT Stated Complaint: NAUSEA,CHILLS,ABD PAIN Nursing Triage Summary: Pt states seen here Thurs for diverticulitis. I have nausea, chills and the abd pain is there, but in different places." Loose stools. Lower abd pain. Pt taking Cipro and Flagyl. History of Present Illness The patient is a 47 year old female who presents to the Emergency Room with complaints of persistent nausea since three days ago. She notes that she has had abdominal pain that is coming and going. She currently rates her pain an 8/ 10 in severity. She was seen in the ED three days ago for abdominal pain and was diagnosed with diverticulitis. She was prescribed Percocet, Cipro and Flagyl. She notes the nausea has worsened over the last day and she reports chills. She reports a fever of 100 Fahrenheit. She notes loose stools, though denies any presence of blood. She has a history of sigmoid colectomy and cholecystectomy. Source of History: patient Onset: three days ago Position: other (global) Symptom Intensity: 8/10 Quality: other (nausea) Timing: other (persistent) Associated Symptoms: + fevers, + chills, + diarrhea Note: She denies any bloody stools. Review of Systems See HPI for pertinent positives & negatives. A total of 10 systems reviewed and were otherwise negative. Past Medical & Surgical Medical Problems: (1) Benign hypertension (2) Biliary colic (3) CHEST PAIN ON BREATHING (4) CHEST PAIN, UNSPECIFIED (5) Diabetes mellitus (6) Diverticulitis (7) sigmoid colectomy Surgical Problems: (1) History of cholecystectomy Family History Diabetes mellitus (Paternal side) Heart disease Hypertension Social History Smoking Status: Never Smoker Smokeless Tobacco Use: No Alcohol Use: occasionally Drug Use: none Marital Status: single Housing Status: lives alone Occupation Status: employed Current/Historical Medications Scheduled Ascorbic Acid (Vitamin C), 1 TAB PO LUNCH Aspirin (Aspirin Ec), 81 MG PO DAILY Cholecalciferol (Vitamin D), 1 TAB PO QAM Ciprofloxacin Hcl (Cipro), 500 MG PO BID Cyanocobalamin (Vitamin B-12), 1 TAB PO LUNCH Eszopiclone (Lunesta), 2 MG PO HS Furosemide (Lasix), 40 MG PO QAM Insulin Detemir (Levemir), 40 UNITS SC BID Irbesartan (Irbesartan), 75 MG PO QPM Levothyroxine Sodium (Synthroid), 88 MCG PO QAM Liraglutide (Victoza), 1.2 MG SC QPM Metformin Hcl Er (Glucophage Er), 1,000 MG PO BID Metronidazole (Flagyl), 500 MG PO TID Pantoprazole (Protonix), 40 MG PO QAM Potassium Chloride (K-Tab), 1 TAB PO QAM Probiotic Product (Probiotic), 1 CAP PO QAM Rosuvastatin Calcium (Crestor), 10 MG PO QPM Scheduled PRN Oxycodone/Acetaminophen 5MG/325MG (Percocet 5MG/325MG), 1 TAB PO Q6H PRN for Pain Allergies Coded Allergies: Labetalol (Verified Allergy, Intermediate, HIVES, 12/05/17) Losartan (Verified Allergy, Intermediate, HIVES, 12/05/17) Penicillins (Verified Allergy, Intermediate, HIVES, 12/05/17) Pioglitazone (Verified Allergy, Intermediate, SWELLING HANDS AND FEET, ) Exenatide (Verified Allergy, Unknown, HIVES, 12/05/17) Fentanyl (Verified Adverse Reaction, Unknown, NAUSEA AND VOMITING, 12/05/17 ) Physical Exam Vital Signs Date Time Temp Pulse Resp B/P (MAP) Pulse Ox O2 Delivery O2 Flow Rate FiO2 12/08/17 19:32 90 18 132/89 98 12/08/17 17:23 79 12/08/17 16:36 36.8 88 18 140/95 96 Room Air Physical Exam GENERAL: Patient is awake, alert, and in no acute distress. Patient is resting comfortably and showing no signs of anxiety EYES: The conjunctivae are clear. The pupils are round and reactive. EARS, NOSE, MOUTH AND THROAT: The nose is without any evidence of any deformity. Mucous membranes are moist tongue is midline NECK: The neck is nontender and supple. RESPIRATORY: Normal respiratory effort is noted there is no evidence of wheezing rhonchi or rales CARDIOVASCULAR: Regular rate and rhythm noted there no murmurs rubs or gallops normal S1 normal S2 GASTROINTESTINAL: Abdomen is mildly distend, but soft. Diffuse tenderness to palpation, especially in the LUQ and LLQ. MUSCULOSKELETAL/EXTREMITIES: There is no evidence of gross deformity full range of motion is noted in the hips and shoulders SKIN: There is no obvious evidence of any rash. There are no petechiae, pallor or cyanosis noted. NEUROLOGIC: Patient is awake alert and oriented x3. Medical Decision & Procedures ER Provider Diagnostic Interpretation: Radiology results as stated below per my review and radiologist interpretation: CHEST AND ABDOMEN 2 VIEWS HISTORY: Generalized abdominal pain. COMPARISON: Abdomen and pelvis CT 12/05/2017. Chest 11/28/2015. FINDINGS: The lungs remain clear. The heart remains mildly enlarged. No pleural effusions. No pneumothorax. Cholecystectomy. The bowel gas pattern is unremarkable. No evidence for bowel obstruction. No renal or ureteral calculi. No pneumoperitoneum. No pneumatosis. IMPRESSION: 1. Stable mild cardiomegaly. 2. Unremarkable bowel gas pattern. No evidence for bowel obstruction. Electronically signed by: Rafat Chavez M.D. 12/08/2017 5:53 PM Dictated Date/Time: 12/08/2017 5:50 PM Laboratory Results 12/08/17 17:20 Red Blood Count 4.73, Mean Corpuscular Volume 86.7, Mean Corpuscular Hemoglobin 29.6, Mean Corpuscular Hemoglobin Concent 34.1, Mean Platelet Volume 9.5, Neutrophils (%) (Auto) 52.9, Lymphocytes (%) (Auto) 36.7, Monocytes (%) (Auto) 7.0, Eosinophils (%) (Auto) 2.7, Basophils (%) (Auto) 0.5, Neutrophils # (Auto) 2.95, Lymphocytes # (Auto) 2.05, Monocytes # (Auto) 0.39, Eosinophils # (Auto) 0.15, Basophils # (Auto) 0.03 12/08/17 17:20 Test 12/08/17 17:20 White Blood Count 5.58 K/uL (4.8-10.8) Red Blood Count 4.73 M/uL (4.2-5.4) Hemoglobin 14.0 g/dL (12.0-16.0) Hematocrit 41.0 % (37-47) Mean Corpuscular Volume 86.7 fL (80-100) Mean Corpuscular Hemoglobin 29.6 pg (25-34) Mean Corpuscular Hemoglobin Concent 34.1 g/dl (32-36) Platelet Count 291 K/uL (130-400) Mean Platelet Volume 9.5 fL (7.4-10.4) Neutrophils (%) (Auto) 52.9 % Lymphocytes (%) (Auto) 36.7 % Monocytes (%) (Auto) 7.0 % Eosinophils (%) (Auto) 2.7 % Basophils (%) (Auto) 0.5 % Neutrophils # (Auto) 2.95 K/uL (1.4-6.5) Lymphocytes # (Auto) 2.05 K/uL (1.2-3.4) Monocytes # (Auto) 0.39 K/uL (0.11-0.59) Eosinophils # (Auto) 0.15 K/uL (0-0.5) Basophils # (Auto) 0.03 K/uL (0-0.2) RDW Standard Deviation 42.0 fL (36.4-46.3) RDW Coefficient of Variation 13.2 % (11.5-14.5) Immature Granulocyte % (Auto) 0.2 % Immature Granulocyte # (Auto) 0.01 K/uL (0.00-0.02) Erythrocyte Sedimentation Rate 30 mm/hr (0-21) Urine Color YELLOW Urine Appearance CLEAR (CLEAR) Urine pH 8.0 (4.5-7.5) Urine Specific [place] 1.006 (1.000-1.030) Urine Protein NEG (NEG) Urine Glucose (UA) NEG (NEG) Urine Ketones NEG (NEG) Urine Occult Blood NEG (NEG) Urine Nitrite NEG (NEG) Urine Bilirubin NEG (NEG) Urine Urobilinogen NEG (NEG) Urine Leukocyte Esterase NEG (NEG) Anion Gap 10.0 mmol/L (3-11) Est Creatinine Clear Calc Drug Dose 78.3 ml/min Estimated GFR () 90.0 Estimated GFR (Non- 77.7 BUN/Creatinine Ratio 5.8 (10-20) Calcium Level 9.6 mg/dl (8.5-10.1) Total Bilirubin 0.4 mg/dl (0.2-1) Direct Bilirubin 0.2 mg/dl (0-0.2) Aspartate Amino Transf (AST/SGOT) 35 U/L (15-37) Alanine Aminotransferase (ALT/SGPT) 42 U/L (12-78) Alkaline Phosphatase 85 U/L (45-117) C-Reactive Protein 1.90 mg/dl (0-0.29) Total Protein 8.2 gm/dl (6.4-8.2) Albumin 4.0 gm/dl (3.4-5.0) Lipase 135 U/L (73-393) Laboratory results per my review. Medications Administered Medications (Trade) Dose Ordered Sig/Naheed Route Start Time Stop Time Status Last Admin Dose Admin Ketorolac Tromethamine (Toradol Inj) 30 mg NOW STAT IV 12/08/17 16:51 12/08/17 16:54 DC 12/08/17 17:15 30 MG Sodium Chloride 1,000 ml @ 999 mls/hr Q1H1M STAT IV 12/08/17 16:51 12/08/17 17:51 DC 12/08/17 17:14 999 MLS/HR Ondansetron HCl (Zofran Inj) 4 mg NOW STAT IV 12/08/17 16:51 12/08/17 16:54 DC 12/08/17 17:14 4 MG ED Course 1650: The patient was evaluated in room C2B. A complete history and physical examination were performed. 1651: Ordered Zofran 4 mg IV, NSS 1,000 ml @ 999 mls/hr IV, and Toradol 30 mg IV 1825: I reassessed the patient at this time. She is feeling better and resting comfortably. I discussed the results and treatment plan with the patient. I answered all pertaining questions that she had. She expressed understanding and verbalized agreement. The patient will be discharged home. Medical Decision Prior records/ancillary studies reviewed. Triage Nursing notes reviewed. The patient's history was concerning for abdominal pain. Differential diagnosis: Etiologies such as appendicitis, diverticulitis, PUD, biliary pathology, UTI, pancreatitis, obstruction, mesenteric ischemia, aortic pathology, infections, inflammatory bowel disease, renal colic, as well as others were entertained. The patient is a 47-year-old female who presented to the emergency department for abdominal pain. The patient was recently diagnosed with diverticulitis. She was started on the usual antibiotics and pain medication including Cipro and Flagyl. The patient states that she has been compliant with her medication regimen. He was not consistent with an acute surgical abdomen. I discussed the patient's laboratory radiographic studies with her. She was treated with IV fluids and IV pain medication. On subsequent reevaluation she was somewhat improved. The patient was encouraged to follow-up with her primary care physician and continue all medications as prescribed. Otherwise she was encouraged to return to the emergency department immediately if symptoms change worsen or the need arises. Especially if she develops worsening pain high fever rigid abdomen or if any other worrisome symptoms were to develop. Medication Reconcilliation Current Medication List: was personally reviewed by me Blood Pressure Screening Patient's blood pressure: Elevated blood pressure Blood pressure disposition: Elevated BP felt to be situational Impression Primary Impression: Left sided abdominal pain Additional Impression: Diverticulitis Scribe Attestation The scribe's documentation has been prepared under my direction and personally reviewed by me in its entirety. I confirm that the note above accurately reflects all work, treatment, procedures, and medical decision making performed by me. Departure Information Dispostion Home / Self-Care Referrals Lexus Patel M.D. (PCP) Forms HOME CARE DOCUMENTATION FORM, IMPORTANT VISIT INFORMATION, Work Instructions Patient Instructions Diverticulitis [place], [facility] Additional Instructions Continue all medications as prescribed. Call your family doctor in the morning to schedule a follow-up appointment. Drink plenty clear liquids. Continue using Motrin and Tylenol as directed for mild pain. Follow-up with your doctor soon as possible. Return to the emergency department immediately if symptoms change worsening of the need arises. Problem Qualifiers
[2017-12-08 17:28] LABS: BASO % 0.5 %; BASO ABS # 0.03 K/uL (0-0.2); EOS % 2.7 %; EOS ABS # 0.15 K/uL (0-0.5); IG# 0.01 K/uL (0.00-0.02); LYMPH % 36.7 %; LYMPH ABS # 2.05 K/uL (1.2-3.4); MEAN CELL VOLUME 86.7 fL (80-100); MEAN CORPUSCULAR HEMOGLOBIN 29.6 pg (25-34); MEAN CORPUSCULAR HGB CONC 34.1 g/dl (32-36); MEAN PLATELET VOLUME 9.5 fL (7.4-10.4); MONO ABS # 0.39 K/uL (0.11-0.59); NEUT % 52.9 %; NEUT ABS # 2.95 K/uL (1.4-6.5); PLATELET COUNT 291 K/uL (130-400); RED CELL DISTRIBUTION WIDTH CV 13.2 % (11.5-14.5); WHITE BLOOD COUNT 5.58 K/uL (4.8-10.8)
[2017-12-08 17:45] LABS: CALCIUM 9.6 mg/dl (8.5-10.1); CREATININE 0.88 mg/dl (0.60-1.20); POTASSIUM 3.2 mmol/L (3.5-5.1)
[2017-12-08 17:48] LABS: TOTAL PROTEIN 8.2 gm/dl (6.4-8.2)
--- NOTE | 2017-12-08 17:54 | DIAGNOSTIC IMAGING REPORT ---
CHEST AND ABDOMEN 2 VIEWS HISTORY: Generalized abdominal pain. COMPARISON: Abdomen and pelvis CT 12/05/2017. Chest 11/28/2015. FINDINGS: The lungs remain clear. The heart remains mildly enlarged. No pleural effusions. No pneumothorax. Cholecystectomy. The bowel gas pattern is unremarkable. No evidence for bowel obstruction. No renal or ureteral calculi. No pneumoperitoneum. No pneumatosis. IMPRESSION: 1. Stable mild cardiomegaly. 2. Unremarkable bowel gas pattern. No evidence for bowel obstruction. Electronically signed by: Rafat Chavez M.D. 12/08/2017 5:53 PM Dictated Date/Time: 12/08/2017 5:50 PM
[2017-12-08 19:32] VITALS: BP 132/89; PULSE 90; O2SAT 98
== END 2017-12-08 19:32 | disposition home or self-care (01) ==
LOC: C.EDB 16:28 → C.EDC 19:32
DX: R10.32 Left lower quadrant pain (principal); R10.12 Left upper quadrant pain; K57.92 Diverticulitis of intestine, part unspecified, without perforation or abscess without bleeding; I10 Essential (primary) hypertension; E11.9 Type 2 diabetes mellitus without complications; Z90.49 Acquired absence of other specified parts of digestive tract; Z79.4 Long term (current) use of insulin; Z79.84 Long term (current) use of oral hypoglycemic drugs; Z79.82 Long term (current) use of aspirin; Z83.3 Family history of diabetes mellitus; Z82.49 Family history of ischemic heart disease and other diseases of the circulatory system; Z88.8 Allergy status to other drugs, medicaments and biological substances; Z88.0 Allergy status to penicillin; Z88.6 Allergy status to analgesic agent

== ENCOUNTER → 2018-06-09 | Outpatient (CLI) | payer OTHER ==
[~2018-06-09] MED LIST changes: -METR-163 PO; -OXYC-57 PO
--- NOTE | 2018-06-09 08:14 | DIAGNOSTIC IMAGING REPORT ---
(CHEST) THORAX WITHOUT CLINICAL HISTORY: R91.1 solitary pulmonary nodule COMPARISON STUDY: CT scan of the abdomen and pelvis performed December 05, 2017 CT DOSE: 420.72 mGycm TECHNIQUE: CT of the thorax was performed from the thoracic inlet to the lung bases. Images are reviewed in the axial, sagittal, and coronal planes. IV contrast was not administered for this examination. A dose lowering technique was utilized adhering to the principles of ALARA. FINDINGS: Thyroid: Imaged portions of the thyroid gland are normal in appearance. Thoracic aorta: The ascending thoracic aorta measures 36 mm. Heart: The heart is normal in size and configuration, without pericardial effusion. Lungs and pleural spaces: No pleural effusions are visualized. There is no focal pulmonary consolidation. There are dependent atelectatic changes. There is a 5 x 3 mm right lower lobe pulmonary nodule as visualized in image #124/256. This was not included on the prior study. There is a stable 7 mm solid circumscribed right middle lobe pulmonary nodule as visualized in image #145/256. Mediastinum: There is no mediastinal lymphadenopathy. Tete: There is no evidence of pathologic hilar adenopathy given the limitations of a noncontrast study Axilla: Clear. Upper abdomen: The gallbladder is surgically absent Skeletal structures: There are no lytic or blastic osseous lesions. IMPRESSION: 1. Stable 7 mm right middle lobe pulmonary nodule. A 12 month follow-up is recommended per Fleischner criteria. Electronically signed by: Dileep Whyte M.D. 06/09/2018 8:13 AM Dictated Date/Time: 06/09/2018 8:05 AM
== END | disposition home or self-care (01) ==
LOC: C.CTS 07:51
PROVIDERS: ATTEND Physician Assistant
DX: R91.1 Solitary pulmonary nodule (principal)